=== PATIENT | male | born 1945 | race Caucasian/White ===

== ENCOUNTER 2016-10-27 08:09 | Day surgery (SDC) | payer OTHER, MEDICARE ==
[2016-10-23 12:32] VITALS: BMI 29.2
--- NOTE | 2016-10-24 08:15 | HP ---
DATE OF ADMISSION: 10/27/2016 DATE OF DICTATION: 09/28/2016 BRIEF HISTORY: This is a 70-year-old gentleman with a very longstanding history of having a known right inguinal hernia. Patient has had progressive pain in the right groin region with Valsalva type maneuvers or bending. He presented to his primary care physician who noted him to have a right inguinal hernia on exam at that time he was felt to have a left inguinal hernia as well. Patient states he has occasional discomfort in the left groin. Patient denies having a swelling in the left groin, but he notes a clear swelling in the right groin. PAST MEDICAL HISTORY: Significant for hypertension, hypercholesterolemia, history of anxiety/depressive disorders. PAST SURGICAL HISTORY: Open appendectomy at the [facility] in 1958. ALLERGIES: None. MEDICATION: Patient takes pravastatin, Bystolic, thyroid medications for hypothyroidism, and his antidepressant. SOCIAL HISTORY: Patient does not smoke. He drinks socially. PHYSICAL EXAMINATION: Lungs: Clear. Heart: Regular rhythm. Abdomen: Soft. Nontender. Nondistended. He has a large right inguinal hernia that is reducible in the supine position. There is extension into the proximal scrotum. The right scrotum and testicles are within normal limits. On the left side, the patient has a fair amount of laxity noted in the left groin. I suspect he may have a small left inguinal hernia as well. The left scrotum and testicles are within normal limits. IMPRESSION/PLAN: Large right inguinal hernia, suspect left inguinal hernia: this is a gentleman who has become very symptomatic from his right inguinal hernia. At this time on the exam I suspect he may have a left inguinal hernia as well. I would recommend a laparoscopic repair of his right inguinal hernia at the time of laparoscopy. The left side will be examined, and if a hernia is identified and confirmed, it will be repaired in the same setting. 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 The indications, alternatives and complications have been discussed. Due to the size of the hernia on the right, he is more likely to develop postoperative seroma, which may or may not resolve; that has also been discussed. VAISHALI CHAPARRO M.D. [id number] cc:
[~2016-10-27 08:09] MED LIST: LACTATED RINGERS SOLUTION 1,000 ML IV SCH; ONDANSETRON 4 MG/2 ML VIAL IVPUSH PRN; PROMETHAZINE HCL 25 MG/1 ML VIAL IVPUSH PRN; oxyCODONE HCL 5 MG TABLET PO PRN
[2016-10-27] MEDS ORDERED: TAMSULOSIN HCL 0.4 MG CAP.ER.24H (FP) ONE (08:21)
[2016-10-27] MEDS ORDERED: ACETAMINOPHEN INJECTION 100 ML IVPB ONE (08:50)
[2016-10-27] MEDS ORDERED: DESFLURANE GAS 240 ML BOTTLE IH ONE (08:50)
[2016-10-27] MEDS ORDERED: SEVOFLURANE 250 ML BTL ONE (08:50)
[2016-10-27] MEDS ORDERED: KETOROLAC TROMETHAMINE 30 MG/1 ML VIAL ONE (08:51)
[2016-10-27] MEDS ORDERED: ONDANSETRON 4 MG/2 ML VIAL ONE ×2 (08:51→10:03)
[2016-10-27] MEDS ORDERED: DEXAMETHASONE SOD PHOSPHATE 4 MG/1 ML VIAL ONE (08:51)
[2016-10-27] MEDS ORDERED: ceFAZolin SODIUM 1 GM VIAL ONE (08:52)
[2016-10-27] MEDS ORDERED: MIDAZOLAM HCL 2 MG/2 ML SINGLE DOSE VIAL ONE ×2 (08:54)
[2016-10-27] MEDS ORDERED: PROPOFOL 20 ML ONE ×4 (08:55→09:02)
[2016-10-27] MEDS ORDERED: ROCURONIUM BROMIDE 50 MG/5 ML VIAL ONE ×2 (08:59→10:05)
[2016-10-27] MEDS ORDERED: NEOSTIGMINE METHYLSULFATE 0.5 MG/ML - 10 ML MDV ONE (08:59)
[2016-10-27] MEDS ORDERED: GLYCOPYRROLATE 0.2 MG/1 ML VIAL ONE (09:00)
[2016-10-27] MEDS ORDERED: ePHEDrine SULFATE 50 MG/1 ML AMPULE ONE (09:41)
--- NOTE | 2016-10-27 11:12 | OP ---
DATE OF OPERATION: 10/27/2016 PREOPERATIVE DIAGNOSIS: Chronically incarcerated right inguinal hernia, suspect left inguinal hernia. POSTOPERATIVE DIAGNOSIS: Chronically incarcerated right pantaloon inguinal hernia, left direct inguinal hernia. PROCEDURE: Laparoscopic repair of incarcerated right inguinal hernia, laparoscopic repair of right inguinal hernia. Both repairs done with mesh. SURGEON: Kobi Nicole MD HAT DESIGNER: Forrest Milner MD ANESTHESIA: Andrés Bruno MD (general) ESTIMATED BLOOD LOSS: Minimal. SPECIMEN: None. INDICATION FOR PROCEDURE: This is a 70-year-old gentleman with a very longstanding history of having a known right inguinal hernia. The hernia has gotten significantly larger, and he now has pain in the area. He wishes to have this repaired. DESCRIPTION OF PROCEDURE: The patient was identified and appropriately positioned on the operating room table. After placement of general anesthesia, the abdomen was prepped and draped in the usual sterile fashion with ChloraPrep. An infraumbilical incision was made and deepened to subcutaneous tissue. The fascia of the rectus muscle on the left identified, divided sharply, the muscles split. Under direct vision, a dissector balloon followed by a structural balloon placed. Also under direct vision, a suprapubic 11-mm port placed. The following structures on the left side were identified: Pubic tubercle, Waldemar ligament, inferior epigastric vessels, spermatic cord, and lateral abdominal wall. During this dissection, the patient was noted to an incarcerated direct inguinal hernia containing fat. This was reduced back into the preperitoneal space with blunt dissection. He had a small cord lipoma noted. This was reduced as well. A 4.5 x 6 piece of Versatex mesh was keyhole placed through the suprapubic port site. The mesh was wrapped around the cord structures laterally to reconstruct the internal ring. Laterally, mesh anchored to the anterior abdominal wall and lateral abdominal wall. Medially it was anchored to the anterior abdominal wall, pubic tubercle, and Waldemar ligament. Upon completion of the left side, similar structures on the right side were identified. On the right side the patient has an incarcerated direct inguinal hernia containing fat. He also had an indirect inguinal hernia and a moderate-sized cord lipoma. Both were reduced back into the preperitoneal space with blunt dissection. Another 4.5 x 6 piece of Versatex mesh was keyhole placed through the suprapubic port site. The mesh was wrapped around the cord structures laterally to reconstruct the internal ring. Laterally, the mesh was anchored to the anterior abdominal wall and lateral abdominal wall. The mesh was well overlapped in the midline and anchored to the anterior abdominal wall, pubic tubercle, and Waldemar ligament. The preperitoneal space was desufflated under direct vision. The operative field was examined and noted to be hemostatic. The ports were removed. Port sites are hemostatic. The fascia at the superior ports and infraumbilical ports were reapproximated with interrupted 0 Vicryl suture. All skin closed with 4-0 Biosyn followed by Dermabond. At the conclusion of the case, sponge and needle counts were correct. ATTESTATION: Brief operative note handwritten on the preprinted form. [facility] will be queried prior to giving any narcotics. KOBI NICOLE M.D. [id number] MTDD
[2016-10-27 12:12] VITALS: TEMP 98.2
[2016-10-27 13:19] VITALS: BP 123/74; PULSE 79
== END 2016-10-27 13:22 | disposition home or self-care (01) ==
LOC: FASU 08:09
PROVIDERS: ATTEND Surgery
PROC: 0YUA4JZ Supplement Bilateral Inguinal Region with Synthetic Substitute, Percutaneous Endoscopic Approach (ICD-10-PCS; principal; 2016-10-27 09:53)
DX: K40.30 Unilateral inguinal hernia, with obstruction, without gangrene, not specified as recurrent (principal)
CPT/HCPCS: 94760